=== PATIENT | female | born 1995 | race Caucasian/White ===

== ENCOUNTER 2019-02-15 20:37 | Emergency (ER) | payer OTHER ==
[~2019-02-15] VITALS: Ht 157.5 cm; Wt 68.0 kg
[2019-02-15 20:43] VITALS: BP 144/94; Ht 157.5 cm; Wt 68.0 kg
== END 2019-02-15 21:09 | disposition other institution (70) ==
LOC: ED 20:37
DX: Z02.89 Encounter for other administrative examinations (principal)